=== PATIENT | male | born 1975 | race Caucasian/White ===

== ENCOUNTER 2016-08-13 07:25 | Emergency (ER) | payer BC ==
[~2016-08-13] VITALS: Ht 180.3 cm; Wt 90.9 kg
[2016-08-13 07:27] VITALS: BP 135/94; TEMP 97.7
[2016-08-13] MEDS ORDERED: FLEXERIL 1010 MG/TAB PO (08:06)
[2016-08-13] MEDS ORDERED: NORCO 325 MG-7.1 TAB PO (08:06)
[2016-08-13 08:28] VITALS: PULSE 72
== END 2016-08-13 08:29 | disposition home or self-care (01) ==
LOC: COL.ER 07:25
DX: M62.838 Other muscle spasm (principal); M25.511 Pain in right shoulder
CPT/HCPCS: J2360